=== PATIENT | male | born 1940 | race Caucasian/White ===

== ENCOUNTER 2017-03-01 06:47 | Emergency (ER) | payer OTHER, MEDICARE ==
[2017-03-01] MEDS ORDERED: NS 1,000 ML IV ONE (07:00)
[2017-03-01] MEDS ORDERED: IOPAMIDOL (ISOVUE 370) 100 ML BTL IV ONE (07:04)
--- NOTE | 2017-03-01 07:04 | EDPHY ---
H & P Stated Complaint: SOB Time Seen by Provider: 03/01/17 06:48 - Personal History Current Tetanus Diphtheria and Acellular Pertussis (TDAP): Yes - Medical/Surgical History Hx Asthma: No Hx Chronic Respiratory Disease: No Hx Diabetes: No Hx Cardiac Disease: Yes Hx Renal Disease: No Hx Cirrhosis: No Hx Alcoholism: No Hx HIV/AIDS: No Hx Splenectomy or Spleen Trauma: No Other PMH: cardiac transplant, PE, DVT, deman pacer, kidney stones, - Social History Smoking Status: Former smoker Constitutional: Initial Vital Signs Temperature (C) 36.6 C 03/01/17 06:51 Heart Rate 82 03/01/17 06:51 Respiratory Rate 16 03/01/17 06:51 Blood Pressure 197/119 H 03/01/17 06:51 O2 Sat (%) 96 03/01/17 06:51 O2 Delivery Mode Nasal Cannula O2 (L/minute) 2 Allergies/Adverse Reactions: procainamide Allergy (Verified 03/01/17 07:06) Home Medications: Medication Instructions Recorded Cephalosporin 03/01/17 Furosemide 03/01/17 Losartan Potassium 03/01/17 Plavix 03/01/17 VITAMIN D 03/01/17 Xarelto 03/01/17 azaTHIOprine 03/01/17 Medical Decision Making - Diagnostics Imaging Results: Imaging Impressions Abdomen CT 03/01/17 07:01 Impression: 1. Mild mesenteric adenitis, potentially related to mild focal focal pancreatitis. This is nonspecific, but can be followed on CT as clinically directed. If there is concern for pancreatic malignancy, then MRI of the pancreas should be considered. There is no bowel obstruction. 2. Diverticulosis without evidence of diverticulitis. 3. Atherosclerotic disease. If the patient is hypertensive. Could possibly have bilateral renal artery stenoses. Results called and discussed with Scooter Solis MD, at 03/01/2017 8:41 General information for patients regarding this examination can be found at [email or web address]. If you have questions or comments about this report, please contact me at [phone] (hospital) or [phone] (cell). Chest/Thorax CTA 03/01/17 07:01 Impression: 1. Probable sequelae of remote lingular pulmonary embolism. No acute superimposed acute emboli identified. 2. Coronary artery disease 3. Large left thyroid mass. If this is not known recommend ultrasound and thyroid function testing for further evaluation. Results called and discussed with Scooter Solis MD, at 03/01/2017 8:27 General information for patients regarding this examination can be found at [email or web address]. If you have questions or comments about this report, please contact me at (hospital) or [phone] (cell). Imaging: Discussed imaging studies w/ scallop cutter machine Radiologist, I viewed and interpreted images myself ED Course/Re-evaluation: CHIEF COMPLAINT: Shortness of breath, abdominal pain HISTORY OF PRESENT ILLNESS: The patient is an anticoagulated, heart transplanted 76 y/o male complaining of shortness of breath and abdominal pain. Before he took his flight to [place] he had abdominal pain and vomiting, which resolved in 12 hours. He has been visiting [place] from [place], since Saturday (3 days ago) and has been short of breath since then. However, since last night his shortness of breath has worsened which has prevented him from sleeping. He is also unable to lie flat due to reflux. While sleeping he also has a cough with sputum. He is currently mildly short of breath. His notes that everyone in the family has had gastroenteritis. Denies history of CHF, fevers, chills, edema, paresthesias or other pertinent symptoms. REVIEW OF SYSTEMS: A 10 point review of systems was performed and is negative with the exception of the elements mentioned in the history of present illness. PHYSICAL EXAM: HR, BP, O2 Sat, RR. Temp noted General Appearance: Alert, well hydrated, appropriate, and non-toxic appearing. Head: Atraumatic without scalp tenderness or obvious injury Eyes: Pupils equal, round, reactive to light and accommodation, EOMI, no trauma , no injection. Ears: Clear bilaterally, no perforation, normal landmarks Nose: Atraumatic, no rhinorrhea, clear. Throat: Mucus membranes moist. Neck: Supple, nontender, no lymphadenopathy. Respiratory: Bilateral rales at bases of lungs. No retractions, no distress, no wheezes, and no accessory muscle use. Cardiovascular: Regular rate and rhythm, no murmurs, rubs, or gallops. Good capillary refill all extremities. Gastrointestinal: Abdomen is tympanitic, distended, and diffusely tender. No masses, no rebound, no guarding, no peritoneal signs. Musculoskeletal: Normal active ROM of all extremities, atraumatic. Neurological: Alert, appropriate, and interactive. Non-focal neuro. Skin: No rashes, good turgor, no nodules on palpation. Past medical history:PE, DVT, kidney stones, Past surgical history: Cardiac transplant, deman pacer, appendectomy Family history: Denies Social history: at bedside, visiting from [place], former smoker DIAGNOSTICS/PROCEDURES/CRITICAL CARE TIME: The 12 lead EKG was interpreted by myself as atrial-paced complexes with a rate of 80. See hard copy and/or "tracemaster" electronic copy for interpretation. Chest CT: Negative Abdominopelvic CT: Mesenteric adenitis, no other acute findings. DIFFERENTIAL DIAGNOSIS: The differential diagnosis for the patient's chest pain included but was not limited to myocardial ischemia, pulmonary embolus, chest wall pain, pleural inflammation, and pulmonary infectious causes. MEDICAL DECISION MAKING: The patient is an anticoagulated, heart transplanted 76 y/o male presenting with shortness of breath. He has a history of multiple pulmonary emboli with negative evidence of DVT's at the time. On exam he has bilateral rales at the base of his lungs and his abdomen is tympanitic, distended, and diffusely tender. While lying down during the exam his O2Sats were 95%. Plan on labs, EKG , abdominopelvic and angiogram CT. 0709: EKG shows atrial-paced complexes with a rate of 80. 0837: Patient's chest CT is negative 0842: Spoke with Dr. Moreno, he reports the patient has minor mesenteric adenitis due to his gastroenteritis. There are no new PE's. 0845: Patient's BNP is low, which could be an early finding of CHF. 0848: Reassessed patient and discussed imaging and laboratory findings. I also discussed the incidental finding of the thyroid nodule. He also noted that he had vision with a yellow tint yesterday, but is unsure what his O2Sats at home are. I discussed providing home oxygen for the next night, they know they will not qualify for insurance. 0928: 40mg IV Lasix administered. Reassessed patient, he will receive home oxygen for tonight. Return precautions provided; patient is comfortable with this plan. - Data Points Laboratory Results: Laboratory Results 03/01/17 06:49 03/01/17 06:49 11/03/01/17 03/01/17 06:49 06:49 06:46 WBC 6.09 10^3/uL 10^3/uL (3.80-9.50) RBC 4.40 10^6/uL 10^6/uL (4.40-6.38) Hgb 15.2 g/dL g/dL (13.7-17.5) POC Hgb 15.6 gm/dL gm/dL (13.7-17.5) Hct 43.3 % % (40.0-51.0) POC Hct 46 % % (40-51) MCV 98.4 fL fL (81.5-99.8) MCH 34.5 pg H pg (27.9-34.1) MCHC 35.1 g/dL g/dL (32.4-36.7) RDW 14.4 % % (11.5-15.2) Plt Count 222 10^3/uL 10^3/uL (150-400) MPV 10.3 fL fL (8.7-11.7) Neut % (Auto) 70.0 % % (39.3-74.2) Lymph % (Auto) 19.0 % % (15.0-45.0) [place] % (Auto) 7.9 % % (4.5-13.0) Eos % (Auto) 2.3 % % (0.6-7.6) Baso % (Auto) 0.3 % % (0.3-1.7) Nucleat RBC Rel Count 0.0 % % (0.0-0.2) Absolute Neuts (auto) 4.26 10^3/uL 10^3/uL (1.70-6.50) Absolute Lymphs (auto) 1.16 10^3/uL 10^3/uL (1.00-3.00) Absolute Monos (auto) 0.48 10^3/uL 10^3/uL (0.30-0.80) Absolute Eos (auto) 0.14 10^3/uL 10^3/uL (0.03-0.40) Absolute Basos (auto) 0.02 10^3/uL 10^3/uL (0.02-0.10) Absolute Nucleated RBC 0.00 10^3/uL 10^3/uL (0-0.01) Immature Gran % 0.5 % % (0.0-1.1) Immature Gran # 0.03 10^3/uL 10^3/uL (0.00-0.10) POC Sodium 143 mEq/L mEq/L (134-144) Sodium 144 mEq/L mEq/L (134-144) POC Potassium 3.9 mEq/L mEq/L (3.3-5.0) Potassium 3.9 mEq/L mEq/L (3.5-5.2) POC Chloride 105 mEq/L mEq/L (97-110) Chloride 105 mEq/L mEq/L (97-110) Carbon Dioxide 27 mEq/l mEq/l (22-31) Anion Gap 12 mEq/L mEq/L (8-16) POC BUN 17 mg/dL mg/dL (7-23) BUN 17 mg/dL mg/dL (7-23) Creatinine 0.9 mg/dL mg/dL (0.7-1.3) POC Creatinine 1.0 mg/dL mg/dL (0.7-1.3) Estimated GFR > 60 Glucose 93 mg/dL mg/dL (70-100) POC Glucose 96 mg/dL mg/dL (70-100) Calcium 9.8 mg/dL mg/dL (8.5-10.4) Total Bilirubin 1.3 mg/dL mg/dL (0.1-1.4) Conjugated Bilirubin 0.4 mg/dL mg/dL (0.0-0.5) Unconjugated Bilirubin 0.9 mg/dL mg/dL (0.0-1.1) AST 30 IU/L IU/L (17-59) ALT 47 IU/L IU/L (21-72) Alkaline Phosphatase 96 IU/L IU/L (38-126) Troponin I < 0.012 ng/mL ng/mL (0.000-0.034) NT-Pro-B Natriuret Pep 1080 pg/mL H pg/mL (0-450) Total Protein 7.1 g/dL g/dL (6.3-8.2) Albumin 4.1 g/dL g/dL (3.5-5.0) Lipase 122 IU/L IU/L (23-300) Medications Given: Discontinued Medications Furosemide (Lasix Injection) 40 mg IVP EDNOW ONE Stop: 03/01/17 09:28 Last Admin: 03/01/17 09:31 Dose: 40 mg Sodium Chloride (Ns) 1,000 mls @ 0 mls/hr IV EDNOW ONE; Wide Open PRN Reason: Protocol Stop: 03/01/17 07:01 Last Admin: 03/01/17 07:41 Dose: 1,000 mls Point of Care Test Results: 03/01/17 06:46 POC Sodium 143 POC Potassium 3.9 POC Chloride 105 POC BUN 17 POC Creatinine 1.0 POC Glucose 96 Departure - Departure Disposition: Home, Routine, Self-Care Clinical Impression: Mesenteric adenitis, Shortness of breath CHF (congestive heart failure) Qualifiers: Congestive heart failure type: unspecified congestive heart failure type Congestive heart failure chronicity: unspecified congestive heart failure chronicity Qualified Code(s): I50.9 - Heart failure, unspecified Condition: Good Instructions: Heart Failure (ED), Mesenteric Adenitis (ED), Dyspnea (ED) Additional Instructions: 1. Check your home oxygen saturations. 2. Follow up with your primary care provider regarding the incidental finding of a left thyroid nodule 3. Return to the Emergency Department for fever, chest pain, shortness of breath , increasing pain or other worsening of condition. Referrals: Bruce Guadarrama DO [Medical Doctor] - As per Instructions Report Scribed for: Scooter Solis Report Scribed by: Thi Mustafa Date of Report: 03/01/17 Time of Report: 07:10
[2017-03-01 07:07] LABS: % IMMATURE GRANULYOCYTES 0.5 % (0.0-1.1); ABSOLUTE IMMATURE GRANULOCYTES 0.03 10^3/uL (0.00-0.10); ADD DIFF? NO; ADD MORPH? NO; ADD SCAN? YES; ATYPICAL LYMPHOCYTE FLAG 60 (0-99); FRAGMENT RBC FLAG 0 (0-99); HEMATOCRIT 43.3 % (40.0-51.0); HEMOGLOBIN 15.2 g/dL (13.7-17.5); LEFT SHIFT FLG 0 (0-99); LIPEMIA HEMOLYSIS FLAG 90 (0-99); MEAN CELL HEMOGLOBIN 34.5 pg (27.9-34.1); MEAN CELL HEMOGLOBIN CONCENTR. 35.1 g/dL (32.4-36.7); MEAN CELL VOLUME 98.4 fL (81.5-99.8); MEAN PLATELET VOLUME 10.3 fL (8.7-11.7); PLATELET CLUMPS FLAG 0 (0-99); PLATELET COUNT 222 10^3/uL (150-400); RED CELL DISTRIBUTION WIDTH 14.4 % (11.5-15.2)
--- NOTE | 2017-03-01 07:10 | CPEKG ---
Heart Rate: 80 RR Interval: 750 P-R Interval: 167 QRSD Interval: 142 QT Interval: 416 QTC Interval: 480 P Bertha: 93 QRS Bertha: 17 T Wave Bertha: 1 EKG Severity - ABNORMAL ECG - EKG Impression: ATRIAL-PACED COMPLEXES EKG Impression: RIGHT BUNDLE BRANCH BLOCK Electronically Signed By: Scooter Solis 01-Mar-2017 14:56:02
[2017-03-01 07:20] LABS: ALANINE AMINOTRANSFERASE 47 IU/L (21-72); ALBUMIN 4.1 g/dL (3.5-5.0); ALKALINE PHOSPHATASE 96 IU/L (38-126); ANION GAP 12 mEq/L (8-16); ASPARTATE AMINOTRANSFERASE 30 IU/L (17-59); BILIRUBIN,TOTAL 1.3 mg/dL (0.1-1.4); BILIRUBIN-CONJUGATED 0.4 mg/dL (0.0-0.5); BILIRUBIN-UNCONJUGATED 0.9 mg/dL (0.0-1.1); CALCIUM 9.8 mg/dL (8.5-10.4); CARBON DIOXIDE 27 mEq/l (22-31); CHLORIDE 105 mEq/L (97-110); CREATININE 0.9 mg/dL (0.7-1.3); GLOMERULAR FILTRATION RATE > 60; GLUCOSE 93 mg/dL (70-100); POTASSIUM 3.9 mEq/L (3.5-5.2); SODIUM 144 mEq/L (134-144); TOTAL PROTEIN 7.1 g/dL (6.3-8.2)
[2017-03-01 07:30] LABS: SCAN NEGATIVE
[2017-03-01 07:32] LABS: TROPONIN I < 0.012 ng/mL (0.000-0.034)
[2017-03-01 08:33] VITALS: PULSE 81; RESP 18
[2017-03-01] MEDS ORDERED: FUROSEMIDE 40 MG/4 ML VIAL IVP ONE (09:27)
[2017-03-01 09:37] VITALS: BP 146/99; TEMP 98.4; O2SAT 90
== END 2017-03-01 10:38 | disposition home or self-care (01) ==
DX: R06.02 Shortness of breath (principal); I88.0 Nonspecific mesenteric lymphadenitis; I50.9 Heart failure, unspecified; E86.9 Volume depletion, unspecified; Z79.01 Long term (current) use of anticoagulants; Z87.891 Personal history of nicotine dependence
CPT/HCPCS: 71275; 74177; 93005; 96361; 96374; 99285; J1940; Q9967; 82947-QW